=== PATIENT | male | born 1945 | race Caucasian/White ===

== ENCOUNTER → 2017-10-28 | Outpatient (CLI) | payer BC | END | disposition home or self-care (01) | LOC: STAR 15:36 | PROVIDERS: ATTEND Orthopaedic Surgery | DX: Z01.818 Encounter for other preprocedural examination (principal); M75.42 Impingement syndrome of left shoulder | CPT/HCPCS: 71046; 93005 ==

== ENCOUNTER 2017-11-03 07:54 | Day surgery (SDC) | payer BC ==
[~2017-11-03] VITALS: Ht 180.3 cm; Wt 75.0 kg
[~2017-11-03 07:54] MED LIST: BUPIVACAINE/PF-EPI 0.5% 1:200K ONE; LIDOCAINE 1%-EPI 1:100K, 30ML ONE
[2017-11-03] MEDS ORDERED: FENTANYL PF 100 MCG/2ML ONE (07:58)
[2017-11-03] MEDS ORDERED: MIDAZOLAM 1 MG/ML, 2ML ONE (07:58)
[2017-11-03] MEDS ORDERED: LACTATED RINGERS 1,000 ML IV SCH (08:12)
[2017-11-03 08:14] VITALS: BP 118/74
[2017-11-03] MEDS ORDERED: PROMETHAZINE 25 MG/ML, 1ML IV PRN (09:30)
[2017-11-03] MEDS ORDERED: OXYcodone IR 5MG TABLET PO ONE (09:30)
[2017-11-03] MEDS ORDERED: ACETAMINOPHEN 500 MG TABLET PO ONE (09:30)
[2017-11-03] MEDS ORDERED: OXYcodone 5 MG/5 ML ORAL.SOL UDC PO PRN (09:30)
[2017-11-03] MEDS ORDERED: FENTANYL PF 100 MCG/2ML IV PRN (09:30)
[2017-11-03] MEDS ORDERED: LIDOCAINE 1%-EPI 1:100K, 20ML INFIL ONE (09:55)
[2017-11-03] MEDS ORDERED: PROPOFOL 10 MG/ML, 20ML ONE ×2 (10:02)
[2017-11-03] MEDS ORDERED: GLYCOPYRROLATE 0.4 MG/2 ML, 2ML ONE (10:02)
[2017-11-03] MEDS ORDERED: EPHEDRINE 50 MG/ML, 1ML ONE (10:02)
[2017-11-03] MEDS ORDERED: SUCCINYLCHOLINE 20 MG/ML, 10ML ONE (10:02)
[2017-11-03] MEDS ORDERED: DEXAMETHASONE 4 MG/ML, 1ML ONE (10:02)
[2017-11-03] MEDS ORDERED: ONDANSETRON 2MG/ML, 2ML ONE (10:02)
[2017-11-03] MEDS ORDERED: CEFAZOLIN 1,000 MG ONE ×2 (10:02)
== END 2017-11-03 12:35 ==
LOC: OUT 07:54
PROVIDERS: ATTEND Orthopaedic Surgery
DX: S43.432A Superior glenoid labrum lesion of left shoulder, initial encounter (principal); M75.42 Impingement syndrome of left shoulder; M19.012 Primary osteoarthritis, left shoulder; M75.02 Adhesive capsulitis of left shoulder; M94.212 Chondromalacia, left shoulder; X58.XXXA Exposure to other specified factors, initial encounter; Y93.89 Activity, other specified; Y92.89 Other specified places as the place of occurrence of the external cause; Y99.8 Other external cause status
CPT/HCPCS: 29823; 29824; 29826; 29875; 64415; J0330; J0690; J1100; J2405; J2704; J3010; J3490; J7120; J2250